=== PATIENT | female | born 1940 ===

== ENCOUNTER 2017-09-26 12:14 | Emergency (ER) | payer OTHER ==
[~2017-09-26] VITALS: Ht 162.6 cm; Wt 67.1 kg
[2017-09-26] MEDS ORDERED: TAPAZOLE10 MG (12:32)
[2017-09-26] MEDS ORDERED: IBUPROFEN800 MG PO (16:00)
== END 2017-09-26 17:28 | disposition home or self-care (01) ==
LOC: ER 12:14
DX: S92.331A Displaced fracture of third metatarsal bone, right foot, initial encounter for closed fracture (principal); S92.341A Displaced fracture of fourth metatarsal bone, right foot, initial encounter for closed fracture; W20.8XXA Other cause of strike by thrown, projected or falling object, initial encounter; Y93.89 Activity, other specified; Y92.018 Other place in single-family (private) house as the place of occurrence of the external cause; Y99.8 Other external cause status